=== PATIENT | male | born 1975 | race Asian ===

== ENCOUNTER 2016-12-16 08:17 | Day surgery (SDC) | payer OTHER ==
[~2016-12-16] VITALS: Ht 180.3 cm; Wt 97.5 kg
[2016-12-16 08:50] VITALS: BP 109/77
[2016-12-16 13:02] VITALS: BP 116/85
== END 2016-12-16 12:10 | disposition home or self-care (01) ==
LOC: GI 08:17 → OR 11:30 → GI 12:10
PROVIDERS: Internal Medicine Gastroenterology
PROC: 0DBN8ZZ Excision of Sigmoid Colon, Via Natural or Artificial Opening Endoscopic (ICD-10-PCS; principal; 2016-12-16 12:30)
PROC: 06LY4CC Occlusion of Hemorrhoidal Plexus with Extraluminal Device, Percutaneous Endoscopic Approach (ICD-10-PCS; 2016-12-16 12:30)
DX: K62.5 Hemorrhage of anus and rectum (principal); D12.5 Benign neoplasm of sigmoid colon; K64.8 Other hemorrhoids; Z80.0 Family history of malignant neoplasm of digestive organs
CPT/HCPCS: 45378; 46221; J1200; J1610; J2250; J2310; J3010; J3490

== ENCOUNTER → 2018-01-09 | Outpatient (CLI) | payer OTHER ==
[2018-01-09 13:23] LABS: ALKALINE PHOSPHATASE 91 U/L (46-116); ALT/SGPT 56 U/L (16-63); AST/SGOT 34 U/L (15-37); BILIRUBIN DIRECT 0.12 mg/dL (0.0-0.2); BILIRUBIN TOTAL 0.5 mg/dL (0.20-1.00); CARBON DIOXIDE 27.9 mmol/L (21-32); CHLORIDE SERUM 114 mmol/L (98-107); CHOLESTEROL 181 mg/dL (<200); CHOLESTEROL/HDL RATIO 5.8; CREATININE SERUM 1.2 mg/dL (0.7-1.3); GFR1 > 60 mL/min; GLUCOSE SERUM 87 mg/dL (74-106); HDL CHOLESTEROL 31 mg/dL (40-60); POTASSIUM SERUM 3.9 mmol/L (3.5-5.1); SODIUM SERUM 142 mmol/L (136-145); TOTAL PROTEIN, SERUM 7.3 g/dL (6.4-8.2); TRIGLYCERIDES 148 mg/dL (<150)
[2018-01-09 13:49] LABS: BASOPHIL % 0.3 % (0-2); PLATELET COUNT 228 x10^3mcL (130-400); RED CELL DISTRIBUTION WIDTH 13.1 % (11.5-14.5)
== END | disposition home or self-care (01) ==
LOC: US 12:19
PROVIDERS: Internal Medicine
PROC: BW40ZZZ Ultrasonography of Abdomen (ICD-10-PCS; principal; 2018-01-09)
DX: Z00.00 Encounter for general adult medical examination without abnormal findings (principal); R10.9 Unspecified abdominal pain
CPT/HCPCS: 84153

== ENCOUNTER 2019-10-18 23:49 | Emergency (ER) | payer OTHER ==
[~2019-10-18] VITALS: Ht 180.3 cm; Wt 97.5 kg
[2019-10-18 23:56] VITALS: Ht 180.3 cm; Wt 97.5 kg
[2019-10-19 02:06] LABS: BASOPHIL % 0.7 % (0-2); PLATELET COUNT 252 x10^3mcL (130-400); RED CELL DISTRIBUTION WIDTH 12.6 % (11.5-14.5)
[2019-10-19 02:20] LABS: CARBON DIOXIDE 26.8 mmol/L (21-32); CHLORIDE SERUM 105 mmol/L (98-107); CREATININE SERUM 1.1 mg/dL (0.7-1.3); GFR1 > 60 mL/min; GLUCOSE SERUM 88 mg/dL (74-106); POTASSIUM SERUM 3.8 mmol/L (3.5-5.1); SODIUM SERUM 137 mmol/L (136-145)
[2019-10-19 02:24] LABS: ALBUMIN 4.2 g/dL (3.4-5.0); ALKALINE PHOSPHATASE 70 U/L (46-116); ALT/SGPT 63 U/L (16-63); AMYLASE 49 U/L (25-115); AST/SGOT 17 U/L (15-37); BILIRUBIN TOTAL 0.54 mg/dL (0.20-1.00); LIPASE 98 IU/L (73-393); TOTAL PROTEIN, SERUM 7.8 g/dL (6.4-8.2)
[2019-10-19 04:53] VITALS: BP 135/85
== END 2019-10-19 04:53 | disposition home or self-care (01) ==
LOC: ED 23:49
PROVIDERS: Emergency Medicine
DX: R10.11 Right upper quadrant pain (principal); E78.00 Pure hypercholesterolemia, unspecified
CPT/HCPCS: 36415

== ENCOUNTER → 2020-01-30 | Outpatient (CLI) | payer OTHER ==
[2020-01-30 12:11] LABS: BASOPHIL % 0.4 % (0-2); PLATELET COUNT 223 x10^3mcL (130-400); RED CELL DISTRIBUTION WIDTH 12.6 % (11.5-14.5)
[2020-01-30 12:40] LABS: ALBUMIN 4.1 g/dL (3.4-5.0); ALKALINE PHOSPHATASE 66 U/L (46-116); ALT/SGPT 41 U/L (16-63); AST/SGOT 20 U/L (15-37); BILIRUBIN DIRECT 0.15 mg/dL (0.0-0.2); BILIRUBIN TOTAL 0.7 mg/dL (0.20-1.00); CALCIUM 8.4 mg/dL (8.5-10.1); CARBON DIOXIDE 29.3 mmol/L (21-32); CHLORIDE SERUM 104 mmol/L (98-107); CHOLESTEROL 191 mg/dL (<200); CHOLESTEROL/HDL RATIO 7.1; CREATININE SERUM 1.2 mg/dL (0.7-1.3); GFR1 > 60 mL/min; GLUCOSE SERUM 92 mg/dL (74-106); HDL CHOLESTEROL 27 mg/dL (40-60); POTASSIUM SERUM 3.6 mmol/L (3.5-5.1); SODIUM SERUM 139 mmol/L (136-145); TOTAL PROTEIN, SERUM 7.6 g/dL (6.4-8.2); TRIGLYCERIDES 296 mg/dL (<150)
== END | disposition home or self-care (01) ==
LOC: LB 11:24
PROVIDERS: ATTEND Internal Medicine
DX: Z00.00 Encounter for general adult medical examination without abnormal findings (principal)

== ENCOUNTER 2020-05-13 14:01 | Emergency (ER) | payer OTHER ==
[~2020-05-13] VITALS: Ht 180.3 cm; Wt 104.3 kg
[2020-05-13 14:08] VITALS: Ht 180.3 cm; Wt 104.3 kg
[2020-05-13 15:09] LABS: BASOPHIL % 0.4 % (0-2); PLATELET COUNT 231 x10^3mcL (130-400); RED CELL DISTRIBUTION WIDTH 12.9 % (11.5-14.5)
[2020-05-13 15:48] LABS: CALCIUM 8.5 mg/dL (8.5-10.1); CARBON DIOXIDE 27.4 mmol/L (21-32); CHLORIDE SERUM 105 mmol/L (98-107); CREATININE SERUM 1.2 mg/dL (0.7-1.3); GFR1 > 60 mL/min; GLUCOSE SERUM 90 mg/dL (74-106); POTASSIUM SERUM 3.7 mmol/L (3.5-5.1); SODIUM SERUM 139 mmol/L (136-145)
[2020-05-13 15:53] LABS: ALBUMIN 4.1 g/dL (3.4-5.0); ALKALINE PHOSPHATASE 70 U/L (46-116); ALT/SGPT 61 U/L (16-63); AST/SGOT 25 U/L (15-37); BILIRUBIN TOTAL 0.85 mg/dL (0.20-1.00); TOTAL PROTEIN, SERUM 7.6 g/dL (6.4-8.2)
[2020-05-13 16:05] VITALS: BP 135/84
== END 2020-05-13 16:55 | disposition home or self-care (01) ==
LOC: ED 14:01
PROVIDERS: Emergency Medicine
DX: R07.89 Other chest pain (principal); E78.00 Pure hypercholesterolemia, unspecified
CPT/HCPCS: Q0092